=== PATIENT | female | born 1990 ===

== ENCOUNTER 2019-05-30 00:42 | Emergency (ER) | payer SELFPAY ==
[2019-05-30] MEDS ORDERED: Sodium Chloride 0.9% 1,000 ML IV ONE (01:04)
[2019-05-30] MEDS ORDERED: Morphine 4 MG/ML Syringe IVPUSH ONE ×2 (01:10→02:35)
[2019-05-30] MEDS ORDERED: cefTRIAXone 1 GM in Sodium Chloride 0.9% 50 ML IV ONE (01:11)
[2019-05-30] MEDS ORDERED: Ondansetron 4 MG/2 ML SDV IVPUSH ONE (01:11)
[2019-05-30] MEDS ORDERED: Lidocaine 1% with EPINEPHrine 1:100,000 10 ML MDV INJECT ONE (01:12)
[2019-05-30] MEDS ORDERED: Diphtheria,Pertussis(Acell),Tetanus Vaccine 0.5 ML Syringe IM ONE (01:13)
[2019-05-30] MEDS ORDERED: ceFAZolin 1 GM in Premix Bag 1 BAG IV ONE (01:16)
[2019-05-30 02:06] LABS: BLOOD UREA NITROGEN,BUN 28 mg/dL (7.0-18.0); CARBON DIOXIDE,CO2 22.7 mmol/L (21.0-32.0); CHLORIDE,CL 104 mmol/L (98-107); GLUCOSE RANDOM 113 mg/dL (74-106); POTASSIUM,K 3.3 mmol/L (3.5-5.1); SODIUM,NA 139 mmol/L (136-145)
[2019-05-30] MEDS ORDERED: Lidocaine 1% 50 ML MDV ONE (02:48)
[2019-05-30] MEDS ORDERED: Lidocaine 1% with EPINEPHrine 1:100,000 20 ML MDV ONE (02:51)
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
== END 2019-05-30 04:57 ==
LOC: MW.ED 00:42
DX: S06.5X9A Traumatic subdural hemorrhage with loss of consciousness of unspecified duration, initial encounter (principal); S02.30XA Fracture of orbital floor, unspecified side, initial encounter for closed fracture; F17.210 Nicotine dependence, cigarettes, uncomplicated; S32.029A Unspecified fracture of second lumbar vertebra, initial encounter for closed fracture; S32.039A Unspecified fracture of third lumbar vertebra, initial encounter for closed fracture; S32.049A Unspecified fracture of fourth lumbar vertebra, initial encounter for closed fracture; S02.32XA Fracture of orbital floor, left side, initial encounter for closed fracture; Z23 Encounter for immunization; Y04.0XXA Assault by unarmed brawl or fight, initial encounter; Z88.0 Allergy status to penicillin
CPT/HCPCS: 12013; 36415; 70450; 71250; 72125; 73130; 74176; 80053; 84703; 85025; 90471; 96365; 96367; 96375; 96376; 99285; J0690; J0696; J2270; J2405; J7030; J7050